=== PATIENT | female | born 1970 | race Caucasian/White ===

== ENCOUNTER 2024-04-11 19:35 | Observation (INO) | payer MEDICARE, OTHER ==
--- NOTE | 2024-04-11 19:42 | ED ---
Overdose HPI - General Stated Complaint: Overdose Time Seen by Provider: 04/11/24 19:41 Source: RN notes reviewed, old records reviewed Mode of arrival: EMS Limitations: altered mental status - History of Present Illness Initial Comments: This is a 53-year-old female of unknown overdose patient is a poor historian and unable to give history MD Complaint: intentional overdose, accidental overdose -: hour(s) Intent: unwilling to say Treatments Prior to Arrival: none - Related Data Home Medications Medication Instructions Recorded Confirmed Folic Acid 1 mg PO DAILY 04/11/24 04/14/24 Losartan Potassium 100 mg PO DAILY 04/11/24 04/14/24 Omeprazole 40 mg PO DAILY 04/11/24 04/14/24 estradioL [Estrace] 1 mg PO DAILY 04/11/24 04/14/24 metHOTREXate sodium [Methotrexate] 20 mg PO Q7D 04/11/24 04/14/24 Ergocalciferol [Vitamin D2 (1250 1,250 mcg PO Q7D 04/12/24 04/14/24 Mcg = [id number] Iu)] Previous Rx's Medication Instructions Recorded DULoxetine HCL [Cymbalta] 30 mg PO DAILY cap 04/14/24 QUEtiapine [SEROquel] 12.5 mg PO BID tab 04/14/24 Allergies Allergy/AdvReac Type Severity Reaction Status Date / Time Sulfa (Sulfonamide Allergy Rash/Hives Verified 04/15/24 18:15 Antibiotics) Review of Systems ROS Statement: Those systems with pertinent positive or pertinent negative responses have been documented in the HPI. ROS Other: All systems not noted in ROS Statement are negative. General Exam Limitations: altered mental status, physical limitation General appearance: alert, in no apparent distress Head exam: Present: atraumatic, normocephalic, normal inspection Eye exam: Present: normal appearance, PERRL, EOMI. Absent: scleral icterus, conjunctival injection, periorbital swelling ENT exam: Present: normal exam, mucous membranes moist Neck exam: Present: normal inspection. Absent: tenderness, meningismus, lymphadenopathy Respiratory exam: Present: normal lung sounds bilaterally. Absent: respiratory distress, wheezes, rales, rhonchi, stridor Cardiovascular Exam: Present: regular rate, normal rhythm, normal heart sounds. Absent: systolic murmur, diastolic murmur, rubs, gallop, clicks GI/Abdominal exam: Present: soft, normal bowel sounds. Absent: distended, tenderness, guarding, rebound, rigid Extremities exam: Present: normal inspection, full ROM, normal capillary refill. Absent: tenderness, pedal edema, joint swelling, calf tenderness Back exam: Present: normal inspection Neurological exam: Present: alert, oriented X3, CN II-XII intact Psychiatric exam: Present: normal affect, normal mood Skin exam: Present: warm, dry, intact, normal color. Absent: rash Course Vital Signs 04/11/24 04/11/24 04/11/24 19:36 20:00 20:45 Temperature Pulse Rate 123 H 113 H 113 H Respiratory 24 24 20 Rate Blood Pressure 146/105 158/113 159/110 O2 Sat by Pulse 98 97 98 Oximetry 04/11/24 04/11/24 04/11/24 21:45 21:58 22:30 Temperature 97.3 F L Pulse Rate 99 116 H Respiratory 20 Rate Blood Pressure 159/110 163/107 O2 Sat by Pulse 99 98 Oximetry 04/12/24 01:44 Temperature Pulse Rate 86 Respiratory 18 Rate Blood Pressure 156/95 O2 Sat by Pulse 97 Oximetry - Reevaluation(s) Reevaluation #1: 04/11/24 21:10 Medical records reviewed Reevaluation #2: 04/11/24 21:52 Patient symptoms unchanged Reevaluation #3: 04/11/24 21:52 Patient informed of results questions answered Reevaluation #4: Was pt. sent in by a medical professional or institution (, PA, EQUIPMENT OPERAT[employer]R, urgent care, hospital, or [place] [facility]...) When possible be specific @ -no Did you speak to anyone other than the patient for history (EMS, parent, family, police, friend...)? What history was obtained from this source @ -no Did you review nursing and triage notes (agree or disagree)? Why? @ -agree Are old charts reviewed (outside hosp., previous admission, EMS record, old EKG, old radiological studies, urgent care reports/EKG's, [place] [facility] records)? Report findings @ -yes Differential Diagnosis (chest pain, altered mental status, abdominal pain women, abdominal pain men, vaginal bleeding, weakness, fever, dyspnea, syncope, headache, dizziness, GI bleed, back pain, seizure, CVA, palpatations, mental health, musculoskeletal)? @ -prior EKG interpreted by me (3pts min.). @ -yes X-rays interpreted by me (1pt min.). @ -no CT interpreted by me (1pt min.). @ -no U/S interpreted by me (1pt. min.). @ -no What testing was considered but not performed or refused? (CT, X-rays, U/S, labs)? Why? @ -none What meds were considered but not given or refused? Why? @ -none Did you discuss the management of the patient with other professionals (professionals i.e. DrVickie, PA, EQUIPMENT OPERAT[employer]R, lab, RT, psych nurse, socially responsible investment adviser, wallpaper scraper, teacher, commanding officer motorized squad, caser shoe parts)? Give summary @ -no Was smoking cessation discussed for >3mins.? @ -no Was critical care preformed (if so, how long)? @ -no Were there social determinants of health that impacted care today? How? (Homelessness, low income, unemployed, alcoholism, drug addiction, transportation, low edu. Level, literacy, decrease access to med. care, detention, rehab)? @ -none Was there de-escalation of care discussed even if they declined (Discuss DNR or withdrawal of care, Hospice)? DNR status @ -no What co-morbidities impacted this encounter? (DM, HTN, Smoking, COPD, CAD, Cancer, CVA, ARF, Chemo, Hep., AIDS, mental health diagnosis, sleep apnea, morbid obesity)? @ -none Was patient admitted / discharged? Hospital course, mention meds given and route, prescriptions, significant lab abnormalities, going to OR and other per tinent info. @ - 53 female to the ER for evaluation of altered mental status suspected overdose will admit for acute intoxication secondary to accidental versus intentional overdose Admitted Undiagnosed new problem with uncertain prognosis? @ -no Drug Therapy requiring intensive monitoring for toxicity (Heparin, Nitro, Insulin, Cardizem)? @ -no Were any procedures done? @ -no Diagnosis/symptom? @ -Overdose accidental Acute, or Chronic, or Acute on Chronic? @ -Acute Uncomplicated (without systemic symptoms) or Complicated (systemic symptoms)? @ -Complicated Side effects of treatment? @ -no Exacerbation, Progression, or Severe Exacerbation? @ -exacerbation Poses a threat to life or bodily function? How? (Chest pain, [place], [place], pneumonia, PE, COPD, DKA, ARF, appy, cholecystitis, CVA, Diverticulitis, Homicidal, Suicidal, threat to staff... and all critical care pts) @ -yes suspected overdose Reevaluation #5: Differential Altered Mental Status: Hypoglycemia, DKA, hypercapnia, ETOH, overdose, CO poisoning, trauma, myxedema coma, HTN encephalopathy, infection, encephalitis, psychosis, intercranial hemorrhage, hepatic encephalopathy, meningitis, CVA, this is not meant to be an all-inclusive list - Consultations Consultation #1: Spoke with TOÑITO mcleod to admit this patient Medical Decision Making - Medical Decision Making 53 female to the ER for evaluation of altered mental status suspected overdose will admit for acute intoxication secondary to accidental versus intentional overdose - Lab Data Result diagrams: 04/13/24 05:19 04/14/24 10:10 Lab Results 04/11/24 04/11/24 04/11/24 Range/Units 19:49 19:49 20:22 WBC 7.8 (3.8-10.6) k/uL RBC 4.89 (3.80-5.40) m/uL Hgb 14.0 (11.4-16.0) gm/dL Hct 41.8 (34.0-46.0) % MCV 85.5 (80.0-100.0) fL MCH 28.6 (25.0-35.0) pg MCHC 33.4 (31.0-37.0) g/dL RDW 14.1 (11.5-15.5) % Plt Count 304 (150-450) k/uL MPV 7.8 Neutrophils % 66 % Lymphocytes % 21 % Monocytes % 9 % Eosinophils % 0 % Basophils % 1 % Neutrophils # 5.1 (1.3-7.7) k/uL Lymphocytes # 1.6 (1.0-4.8) k/uL Monocytes # 0.7 (0-1.0) k/uL Eosinophils # 0.0 (0-0.7) k/uL Basophils # 0.1 (0-0.2) k/uL PT 10.4 (10.0-12.5) sec INR 0.9 (<1.2) Sodium (137-145) mmol/L Potassium (3.5-5.1) mmol/L Chloride (98-107) mmol/L Carbon Dioxide (22-30) mmol/L Anion Gap mmol/L BUN (7-17) mg/dL Creatinine (0.52-1.04) mg/dL Est GFR (CKD-EPI)AfAm (>60 ml/min/1.73 sqM) Est GFR (CKD-EPI)NonAf (>60 ml/min/1.73 sqM) Glucose (74-99) mg/dL Calcium (8.4-10.2) mg/dL Total Bilirubin (0.2-1.3) mg/dL AST (14-36) U/L ALT (4-34) U/L Alkaline Phosphatase (38-126) U/L Total Protein (6.3-8.2) g/dL Albumin (3.5-5.0) g/dL Lipase (23-300) U/L Urine HCG, Qual Not Detected (Not Detectd) Salicylates mg/dL Urine Opiates Screen (NotDetected) Ur Oxycodone Screen (NotDetected) Urine Methadone Screen (NotDetected) Acetaminophen ug/mL Ur Barbiturates Screen (NotDetected) U Tricyclic Antidepress (NotDetected) Ur Phencyclidine Scrn (NotDetected) Ur Amphetamines Screen (NotDetected) U Methamphetamines Scrn (NotDetected) U Benzodiazepines Scrn (NotDetected) Urine Cocaine Screen (NotDetected) U Marijuana (THC) Screen (NotDetected) Serum Alcohol mg/dL 04/11/24 04/11/24 Range/Units 20:22 20:34 WBC (3.8-10.6) k/uL RBC (3.80-5.40) m/uL Hgb (11.4-16.0) gm/dL Hct (34.0-46.0) % MCV (80.0-100.0) fL MCH (25.0-35.0) pg MCHC (31.0-37.0) g/dL RDW (11.5-15.5) % Plt Count (150-450) k/uL MPV Neutrophils % % Lymphocytes % % Monocytes % % Eosinophils % % Basophils % % Neutrophils # (1.3-7.7) k/uL Lymphocytes # (1.0-4.8) k/uL Monocytes # (0-1.0) k/uL Eosinophils # (0-0.7) k/uL Basophils # (0-0.2) k/uL PT (10.0-12.5) sec INR (<1.2) Sodium 143 (137-145) mmol/L Potassium 3.7 (3.5-5.1) mmol/L Chloride 112 H (98-107) mmol/L Carbon Dioxide 20 L (22-30) mmol/L Anion Gap 11 mmol/L BUN 15 (7-17) mg/dL Creatinine 1.29 H (0.52-1.04) mg/dL Est GFR (CKD-EPI)AfAm 55 (>60 ml/min/1.73 sqM) Est GFR (CKD-EPI)NonAf 47 (>60 ml/min/1.73 sqM) Glucose 69 L (74-99) mg/dL Calcium 9.4 (8.4-10.2) mg/dL Total Bilirubin 0.4 (0.2-1.3) mg/dL AST 21 (14-36) U/L ALT 12 (4-34) U/L Alkaline Phosphatase 112 (38-126) U/L Total Protein 6.9 (6.3-8.2) g/dL Albumin 3.6 (3.5-5.0) g/dL Lipase 240 (23-300) U/L Urine HCG, Qual (Not Detectd) Salicylates <1.0 mg/dL Urine Opiates Screen Not Detected (NotDetected) Ur Oxycodone Screen Not Detected (NotDetected) Urine Methadone Screen Not Detected (NotDetected) Acetaminophen <10.0 ug/mL Ur Barbiturates Screen Not Detected (NotDetected) U Tricyclic Antidepress Not Detected (NotDetected) Ur Phencyclidine Scrn Not Detected (NotDetected) Ur Amphetamines Screen Not Detected (NotDetected) U Methamphetamines Scrn Not Detected (NotDetected) U Benzodiazepines Scrn Not Detected (NotDetected) Urine Cocaine Screen Not Detected (NotDetected) U Marijuana (THC) Screen Detected H (NotDetected) Serum Alcohol <10 mg/dL - EKG Data -: EKG Interpreted by Me (EKG is sinus tachycardia 123 MO 132 QRS 87 QTc 410) - Radiology Data Radiology results: report reviewed (CT brain is negatie for acute disease), image reviewed Disposition Clinical Impression: Accidental drug overdose, Drug overdose Disposition: ADMITTED IP TO THIS HOSP Condition: Fair Is patient prescribed a controlled substance at d/c from ED?: No Time of Disposition: 22:00
[2024-04-11 20:29] LABS: Basophils # (A) 0.1 k/uL (0-0.2); Basophils % (A) 1 %; Eosinophils % (A) 0 %; HCT 41.8 % (34.0-46.0); Lymphocytes # (A) 1.6 k/uL (1.0-4.8); Lymphocytes % (A) 21 %; MCH 28.6 pg (25.0-35.0); MCHC 33.4 g/dL (31.0-37.0); MCV 85.5 fL (80.0-100.0); Mean Platelet Volume 7.8; Monocytes # (A) 0.7 k/uL (0-1.0); Monocytes % (A) 9 %; Neutrophils # (A) 5.1 k/uL (1.3-7.7); Neutrophils % (A) 66 %; Platelet Count 304 k/uL (150-450); RBC 4.89 m/uL (3.80-5.40); RDW 14.1 % (11.5-15.5); WBC 7.8 k/uL (3.8-10.6)
[2024-04-11] MEDS: SODIUM CHLORIDE 0.9% 1,000 ML IV STA ×2 (20:29→22:34)
[2024-04-11] MEDS: SODIUM CHLORIDE 0.9% 500 ML 500 ML IV STA (20:47)
[2024-04-11 21:00] LABS: INR 0.9 (<1.2); Prothrombin Time 10.4 sec (10.0-12.5)
[2024-04-11 21:44] LABS: ALT 12 U/L (4-34); AST 21 U/L (14-36); Acetaminophen <10.0 ug/mL; African American GFR (CKD) 55 (>60 ml/min/1.73 sqM); Albumin 3.6 g/dL (3.5-5.0); Alcohol <10 mg/dL; Alkaline Phosphatase 112 U/L (38-126); Anion Gap 11 mmol/L; Blood Urea Nitrogen 15 mg/dL (7-17); Calcium 9.4 mg/dL (8.4-10.2); Carbon Dioxide 20 mmol/L (22-30); Chloride 112 mmol/L (98-107); Glucose 69 mg/dL (74-99); Lipase 240 U/L (23-300); Non-African American GFR(CKD) 47 (>60 ml/min/1.73 sqM); Potassium 3.7 mmol/L (3.5-5.1); Salicylate <1.0 mg/dL; Sodium 143 mmol/L (137-145); Total Bilirubin 0.4 mg/dL (0.2-1.3); Total Protein 6.9 g/dL (6.3-8.2)
[2024-04-11] MEDS ORDERED: LORazepam 2 MG/ML INJ IV PRN (21:50)
[2024-04-11] MEDS ORDERED: NALOXONE 0.4 MG/ML 1 ML VIAL IV PRN (21:51)
[2024-04-11] MEDS ORDERED: ONDANSETRON 4 MG/2 ML VIAL IVP PRN (21:51)
[2024-04-11 22:07] LABS: Amphetamine Screen,Urine Not Detected (NotDetected); Barbiturate Screen,Urine Not Detected (NotDetected); Benzodiazepines Screen,Urine Not Detected (NotDetected); Cocaine Screen,Urine Not Detected (NotDetected); Methadone Screen, Urine Not Detected (NotDetected); Opiate Screen,Urine Not Detected (NotDetected); Oxycodone Screen, Urine Not Detected (NotDetected); Phencyclidine Screen,Urine Not Detected (NotDetected); Tricyclic Antidepressant,Urine Not Detected (NotDetected); Urn Cannabinoid Scrn Detected (NotDetected)
[2024-04-11] MEDS: SODIUM CHLORIDE 0.9% 1,000 ML IV SCH (22:34)
[2024-04-11] MEDS: LORazepam 2 MG/ML INJ IV STA (22:36)
[2024-04-12 05:09] LABS: Basophils # (A) 0.1 k/uL (0-0.2); Basophils % (A) 1 %; Eosinophils % (A) 1 %; HGB 12.4 gm/dL (11.4-16.0); Lymphocytes # (A) 1.4 k/uL (1.0-4.8); Lymphocytes % (A) 24 %; MCH 27.8 pg (25.0-35.0); MCHC 31.8 g/dL (31.0-37.0); MCV 87.4 fL (80.0-100.0); Mean Platelet Volume 7.9; Monocytes # (A) 0.4 k/uL (0-1.0); Monocytes % (A) 7 %; Neutrophils # (A) 3.8 k/uL (1.3-7.7); Neutrophils % (A) 63 %; Platelet Count 276 k/uL (150-450); RBC 4.46 m/uL (3.80-5.40); RDW 14.7 % (11.5-15.5); WBC 5.9 k/uL (3.8-10.6)
[2024-04-12 06:04] LABS: ALT 9 U/L (4-34); AST 20 U/L (14-36); African American GFR (CKD) 43 (>60 ml/min/1.73 sqM); Albumin 3.3 g/dL (3.5-5.0); Alkaline Phosphatase 87 U/L (38-126); Anion Gap 11 mmol/L; Blood Urea Nitrogen 17 mg/dL (7-17); Calcium 8.8 mg/dL (8.4-10.2); Carbon Dioxide 18 mmol/L (22-30); Chloride 115 mmol/L (98-107); Glucose 74 mg/dL (74-99); Magnesium 2.2 mg/dL (1.6-2.3); Non-African American GFR(CKD) 37 (>60 ml/min/1.73 sqM); Potassium 3.2 mmol/L (3.5-5.1); Sodium 144 mmol/L (137-145); Total Bilirubin 0.3 mg/dL (0.2-1.3); Total Protein 6.5 g/dL (6.3-8.2)
[2024-04-12] MEDS: PANTOPRAZOLE 40 MG/10 ML VIAL IV SCH (08:10)
[2024-04-12 09:03] LABS: Phosphorus 3.5 mg/dL (2.5-4.5)
[2024-04-12] MEDS: POTASSIUM CHLORIDE ER 20 MEQ TAB.ER PO SCH (10:07)
[2024-04-12] MEDS: LOSARTAN 50 MG TAB PO SCH (11:28)
[2024-04-12] MEDS: LACTATED RINGERS 1,000 ML IV SCH (11:28)
[2024-04-12 15:36] VITALS: BMI 25.7
[2024-04-12] MEDS ORDERED: DULoxetine HCL 30 MG CAPSULE.DR PO SCH (21:00)
[2024-04-12] MEDS: QUEtiapine 25 MG TAB PO SCH (21:16)
--- NOTE | 2024-04-12 22:41 | P.HPIM ---
History of Present Illness H&P Date: 04/12/24 Chief Complaint: Overdose Patient is a 53-year-old female with a past medical history of rheumatoid arthritis, prior history of smoking, anxiety/depression/bipolar disorder was brought to the hospital due to accidental overdose. Patient states that she took extra sleeping pills as she is not feeling well and upset with his brother. Patient did not want to commit suicide otherwise. Patient is not sure which medication she took. Denied any complaints of chest pain or shortness of breath. No nausea vomiting abdominal pain or diarrhea. No cough or sputum production. Denied any recent illnesses. EKG on admission showed sinus tachycardia with heart rate 123 Patient has been afebrile. On room air on admission Laboratory data showed sodium 143 potassium 3.7 chloride 112 bicarb is 20 BUN 15 and creatinine 1.29 and blood sugar of 69 liver AST not elevated CK level 50 and lipase 240 urine beta-hCG not detected UDS is positive for marijuana. Serum marker level less than 10. Review of Systems Complete review of systems could not be obtained from the patient except as per HPI ROS unobtainable: due to mental status Past Medical History Past Medical History: Pneumonia, Rheumatoid Arthritis (RA) History of Any Multi-Drug Resistant Organisms: Unobtainable Past Surgical History: Joint Replacement Additional Past Surgical History / Comment(s): R knee replacement Past Anesthesia/Blood Transfusion Reactions: Unable to Obtain Past Psychological History: Unable to Obtain Smoking Status: Former smoker Past Alcohol Use History: Occasional Past Drug Use History: None Reported Medications and Allergies Home Medications Medication Instructions Recorded Confirmed Type DULoxetine HCL [Cymbalta] 60 mg PO DAILY 04/11/24 04/12/24 History Folic Acid 1 mg PO DAILY 04/11/24 04/12/24 History Losartan Potassium 100 mg PO DAILY 04/11/24 04/12/24 History Omeprazole 40 mg PO DAILY 04/11/24 04/12/24 History Pregabalin [Lyrica] 75 mg PO TID 04/11/24 04/12/24 History estradioL [Estrace] 1 mg PO DAILY 04/11/24 04/12/24 History metHOTREXate sodium [Methotrexate] 20 mg PO Q7D 04/11/24 04/12/24 History Ergocalciferol [Vitamin D2 (1250 1,250 mcg PO Q7D 04/12/24 04/12/24 History Mcg = 48312 Iu)] Allergies Allergy/AdvReac Type Severity Reaction Status Date / Time Sulfa (Sulfonamide Allergy Unknown Verified 04/11/24 19:45 Antibiotics) Physical Exam Vitals: Vital Signs Temp Pulse Pulse Pulse Resp BP BP 04/12/24 07:39 98.6 F 90 16 154/94 04/12/24 05:40 97.6 F 96 18 167/97 04/12/24 05:08 97.8 F 92 18 155/95 04/12/24 01:44 86 18 156/95 04/11/24 22:30 116 H 20 163/107 04/11/24 21:58 97.3 F L 04/11/24 21:45 99 159/110 04/11/24 20:45 113 H 20 159/110 04/11/24 20:00 113 H 24 158/113 04/11/24 19:36 123 H 24 146/105 Pulse Ox 04/12/24 07:39 98 04/12/24 05:40 99 04/12/24 05:08 96 04/12/24 01:44 97 04/11/24 22:30 98 04/11/24 21:58 04/11/24 21:45 99 04/11/24 20:45 98 04/11/24 20:00 97 04/11/24 19:36 98 Intake and Output 04/11/24 04/12/24 04/12/24 22:59 06:59 14:59 Other: Weight 68.039 kg 68.039 kg PHYSICAL EXAMINATION: Patient is lying in the bed, no acute distress, awake alert and oriented but confused and anxious... HEENT: Normocephalic. Neck is supple. Pupils reactive. Nostrils clear. Oral cavity is moist. Neck reveals no JVD, carotid bruits, or thyromegaly. CHEST EXAMINATION: Trachea is central. Symmetrical expansion. Lung houser clear to auscultation and percussion. CARDIAC: Normal S1, S2 with no gallops. No murmurs ABDOMEN: Soft. Bowel sounds normal. No organomegaly. No abdominal bruits. Extremities: reveal no edema. No clubbing or cyanosis Neurologically awake, alert, oriented x 2-3 with well-coordinated movements. No focal deficits noted Skin: No rash or skin lesions. Psychiatric: Coperative. Nonsuicidal Musculoskeletal: No joint swelling or deformity. Normal range of motion. Results CBC & Chem 7: 04/12/24 04:17 04/12/24 04:17 Labs: Abnormal Lab Results - Last 24 Hours (Table) 04/11/24 04/11/24 04/12/24 Range/Units 20:22 20:34 04:17 Potassium 3.2 L (3.5-5.1) mmol/L Chloride 112 H 115 H (98-107) mmol/L Carbon Dioxide 20 L 18 L (22-30) mmol/L Creatinine 1.29 H 1.58 H (0.52-1.04) mg/dL Glucose 69 L (74-99) mg/dL Albumin 3.3 L (3.5-5.0) g/dL U Marijuana (THC) Screen Detected H (NotDetected) Thrombosis Risk Factor Assmnt - DVT/VTE Prophylaxis DVT/VTE Prophylaxis: Pharmacologic Prophylaxis ordered - Choose All That Apply Any of the Below Risk Factors Present?: Yes Each Factor Represents 1 point: Age 41-60 years, Obesity (BMI >25) Other Risk Factors: No Other congenital or acquired thrombophilia - If yes, enter type in comment: No Thrombosis Risk Factor Assessment Total Risk Factor Score: 2 Thrombosis Risk Factor Assessment Level: Low Risk Assessment and Plan Assessment: Acute intestinal drug overdose Hypokalemia Acute kidney injury likely vasomotor nephropathy Anxiety/depression Rheumatoid arthritis on methotrexate at home Prior history of smoking Marijuana use disorder GI and DVT prophylaxis with Protonix and heparin subcu Plan: Patient will be continued on IV hydration with Ringer's lactate. Replace electrolytes. Continue with constant observer at bedside. Psychiatry was consulted. Patient will be started back on Cymbalta and Seroquel which she takes at home. Continue to follow closely. Time with Patient: Greater than 30
[2024-04-13] MEDS: HEPARIN SODIUM,PORCINE 5,000 UNIT/ML 1 ML VIAL SQ SCH (00:07)
[2024-04-13] MEDS: FOLIC ACID 1 MG TAB PO SCH (08:01)
[2024-04-13] MEDS: DULoxetine HCL 30 MG CAPSULE.DR PO SCH (08:01)
[2024-04-13 09:07] LABS: Basophils # (A) 0.05 X 10*3/uL (0.00-0.10); Basophils % (A) 0.8 %; Eosinophils # (A) 0.11 X 10*3/uL (0.04-0.35); Eosinophils % (A) 1.9 %; HCT 34.9 % (37.2-46.3); HGB 11.4 g/dL (12.0-15.0); Lymphocytes # (A) 1.64 X 10*3/uL (0.90-5.00); Lymphocytes % (A) 27.7 %; MCH 28.2 pg (27.0-32.0); MCHC 32.7 g/dL (32.0-37.0); MCV 86.4 FL (80.0-97.0); Mean Platelet Volume 9.9 FL (9.5-12.2); Monocytes # (A) 0.54 X 10*3/uL (0.20-1.00); Monocytes % (A) 9.1 %; NRBC Per 100 WBC 0 X 10*3/uL (0.00-0.01); Neutrophils # (A) 3.49 X 10*3/uL (1.80-7.70); Platelet Count 292 X 10*3/uL (140-440); RBC 4.04 X 10*6/uL (4.10-5.20); RDW 14.5 % (11.5-14.5); WBC 5.92 X 10*3/uL (4.50-10.00)
[2024-04-13 09:16] LABS: BUN/Creat Ratio 8.75 Ratio (12.00-20.00); Blood Urea Nitrogen 10.5 mg/dL (9.0-27.0); Calcium 8.5 mg/dL (8.7-10.3); Carbon Dioxide 15.5 mmol/L (21.6-31.8); Chloride 115 mmol/L (96-109); Glucose 73 mg/dL (70-110); Potassium 3.8 mmol/L (3.5-5.5); Sodium 143 mmol/L (135-145)
[2024-04-13 13:01] VITALS: RESP 16
--- NOTE | 2024-04-14 00:35 | P.CN ---
Psychiatric Consult - . Consult date: 04/12/24 Consult:: IDENTIFYING DATA: This patient is a 53 year old partnered female REASON FOR REFERRAL: Psychiatry was consulted for "overdose". HISTORY OF PRESENT ILLNESS: Per medical H&P, "Patient is a 53-year-old female with a past medical history of rheumatoid arthritis, prior history of smoking, anxiety/depression/bipolar disorder was brought to the hospital due to accidental overdose. Patient states that she took extra sleeping pills as she is not feeling well and upset with his brother. Patient did not want to commit suicide otherwise. Patient is not sure which medication she took. Denied any complaints of chest pain or shortness of breath. No nausea vomiting abdominal pain or diarrhea. No cough or sputum production. Denied any recent illnesses. EKG on admission showed sinus tachycardia with heart rate 123 Patient has been afebrile. On room air on admission Laboratory data showed sodium 143 potassium 3.7 chloride 112 bicarb is 20 BUN 15 and creatinine 1.29 and blood sugar of 69 liver AST not elevated CK level 50 and lipase 240 urine beta-hCG not detected UDS is positive for marijuana. Serum marker level less than 10." Prior to evaluating patient, I spoke with patient's unit nurse who spoke with patient's fiance. Nurse reports patient was a missing person for approximately 24 hours after having left her home within apparently loaded gun that she was holding to her head and a bag of unspecified medications. She got into the car and left her home and jesus manuel was not sure where she went and so police were called. It is believed when police found her in her they searched her car, however it is not clear if they found a gun or medications. On my assessment, patient is found sitting up in bed with food tray in front of her and sitter at bedside to maintain safety (who leaves the room for privacy). Patient appears to be a poor historian and appears very confused throughout the assessment often giving nonsensical answers. She is alert and oriented to person and can identify that she is at a hospital, ever she claims she is at [facility] and believes the year is 2024. She claims she is here because she had the flu and hasn't been going out of the house. She had been throwing up for more than a week. Her thoughts are disorganized and she begins to talk about her boyfriend yelling at her and "going to [employer] and being out of stocks and fence panels, tea posts and paint." When asked if she feels confused she replies "not at all". She appears unaware of how confused she has or how inappropriate her responses are. she is prescribed Cymbalta and Lyrica at home and believe she took these medications at the hospital this morning however these have been ordered for her here. She denies overdosing to me, ever per medical doctors know she had admitted taking extra sleeping pills but claims she did not want to commit suicide. apparently police found her parked at possibly a rest stop. She denies that she had held a gun to her head. She admits she owns a gun and she had the chronic the gun in her car but claims it was in the trunk. She denies depressed mood. She begins describing the gun as having "taken the clip out of it" and "had one in the chamber", then derails into nonsensical thought content about "for tiling, before everything sets up her cutting trying to scrape them off." She claims "everybody is always so concerned about a gun!" and does not appear to appreciate the severity of her mental health decline and the severity of her suicidal gesture. At this time patient denies any suicidal or homicidal ideations, intent or plan. Patient denies any auditory, visual hallucinations and denies any paranoia or delusions. Patients admits to using cannabis, about 3 joints per day. He denies alcohol use or other illicit drug use. She is a former smoker and is proud that she has quit. PAST PSYCHIATRIC HISTORY: Patient is an unreliable historian but reports she has depression and anxiety that is being treated with Cymbalta. She reports previous psychiatric hospitalizations at [facility]. She denies any current psychiatric outpatient follow-up. She reports her medications are prescribed by her primary care doctor Dr. Owens. She denies any past history of suicide attempts. PAST MEDICAL HISTORY: Past Medical History: Pneumonia, Rheumatoid Arthritis (RA) History of Any Multi-Drug Resistant Organisms: Unobtainable Past Surgical History: Joint Replacement Additional Past Surgical History / Comment(s): R knee replacement Past Anesthesia/Blood Transfusion Reactions: Unable to Obtain Past Psychological History: Unable to Obtain Smoking Status: Former smoker Past Alcohol Use History: Occasional Past Drug Use History: None Reported ALLERGIES: as per EMR. CHEMICAL DEPENDENCY HISTORY: as per HPI. FAMILY PSYCHIATRIC/SUBSTANCE USE HISTORY: reports father is an alcoholic and brother has a history of heroin. SOCIAL HISTORY: She is an unreliable historian. she has a fianc that she was living with however she claims he does not want her back in the house. She has a sister named Shanell. MENTAL STATUS EXAM: General Appearance: Patient appears to be stated age, fair hygiene and grooming, wearing hospital gown, with fair eye contact, tattoos. Behavior: Patient is sitting up in bed without any agitated behavior. Speech: Patient's speech is fluent and non-pressured. Mood/Affect: Patient reports their mood is "good", affect is congruent Suicidality/Homicidality: Patient denies having any suicidal or homicidal ideation intent or plan. Perceptions: Patient denies any visual hallucinations [and denies any auditory hallucinations] Though content/process: There is no evidence of any delusional thought content and thought process is linear and goal-directed. Memory and concentration: Alert and oriented to person only. recent and remote memory is impaired. Judgment and insight: poor IMPRESSIONS: Delirium (s/p overdose on unknown medications, elevated creatinine) Unspecified psychotic disorder r/o cannabis induced psychotic disorder Unspecified depressive disorder Cannabis use disorder, severe PLAN: -Patient DOES meet criteria for inpatient psychiatric admission, however due to patient's confusion and renal creatinine trending upwards, she is not considered medically stable for transfer to the psychiatry unit at this time. -Patient DOES NOT have decision making capacity at this time and is unable to reason through and communicate/appreciate the risks, benefits and alternatives to treatment. -Delirium precautions recommended with patient including - avoiding use of narcotics and DYE RANGE TENDER sedatives, limit anticholinergic medications when possible, frequent re-orientation, minimize use of restraints, open window shades during the day and close them at night -Would recommend the following medication changes/additions: Discontinue PRN Ativan since this may increase the risk of falls and confusion, especially since creatinine is trending upwards. Ativan may be used for myoclonus in the context of serotonin syndrome, however at this time she does not appear to have myoclonus. Start Seroquel 12.5 mg BID for psychosis, with plan to increase as needed/tolerated. Restart home Cymbalta as 30 mg daily starting Sunday AM (instead of 60 mg daily) for depression. Monitor for any signs/symptoms of serotonin syndrome (tachycardia, high blood pressure, agitation, restlessness, insomnia, worsening confusion, dilated pupils, twitching muscles/poor muscle coordination, muscle ridgidity, sweating, headache, diarrhea, shivering, goose bumps, fever, tremor, etc) and discontinue Cymbalta. -Continue 1:1 sitter for safety. -Cannot leave AMA at this time. Patient will need a petition and certification if attempting to leave AMA. -Social work assistance would be appreciated in contacting the police department that brought patient to the ER to see if medications were found in the car (were the medication bottles full or empty), and if gun was found in the car (where is gun located now?). -When medically stable, patient is eligible for transfer to a psych bed when available. -Communicated plan to patient's nurse. -Will continue to follow along. -Please contact with any questions.
--- NOTE | 2024-04-14 10:22 | P.PN ---
Subjective Progress Note Date: 04/13/24 Patient is a 53-year-old female with a past medical history of rheumatoid arthritis, prior history of smoking, anxiety/depression/bipolar disorder was brought to the hospital due to accidental overdose. Patient states that she took extra sleeping pills as she is not feeling well and upset with his brother. Patient did not want to commit suicide otherwise. Patient is not sure which medication she took. Denied any complaints of chest pain or shortness of breath. No nausea vomiting abdominal pain or diarrhea. No cough or sputum production. Denied any recent illnesses. EKG on admission showed sinus tachycardia with heart rate 123 Patient has been afebrile. On room air on admission Laboratory data showed sodium 143 potassium 3.7 chloride 112 bicarb is 20 BUN 15 and creatinine 1.29 and blood sugar of 69 liver AST not elevated CK level 50 and lipase 240 urine beta-hCG not detected UDS is positive for marijuana. Serum marker level less than 10. 04/13/2024 Patient is currently lying in the bed. Awake alert and oriented. Mentation is improving. No complaints of chest pain or shortness of breath. No headache or dizziness or lightheadedness. Laboratory data showed WBC 5.9 hemoglobin 9.4 and platelets 292 sodium 143 potassium 3.8 chloride 115 bicarb is 15.5 BUN 10.5 and creatinine 1.2 and calcium 8.5. TSH within normal limits. Patient is being continued on Cymbalta and Seroquel. Constant observer at bedside. Continued on Ringer's lactate at 75 cc/h. Current medications reviewed. Objective - Vital Signs Vital signs: Vital Signs Temp 98.2 F 04/13/24 19:47 Pulse 66 04/13/24 19:47 Resp 16 04/13/24 19:47 BP 156/73 04/13/24 19:47 Pulse Ox 96 04/13/24 19:47 FiO2 Intake & Output 04/13/24 04/13/24 04/14/24 06:59 18:59 06:59 Intake Total Balance Intake: Intake, IV Titration Amount Lactated Ringers 1,000 ml @ 75 mls/hr IV .[id number] SY Rx#:[id number] Sodium Chloride 0.9% 1, 000 ml @ 130 mls/hr IV . Q7H42M SY Rx#:[id number] Oral Other: # Voids - Exam PHYSICAL EXAMINATION: Patient is lying in the bed, no acute distress, awake alert and oriented but confused and anxious... HEENT: Normocephalic. Neck is supple. Pupils reactive. Nostrils clear. Oral cavity is moist. Neck reveals no JVD, carotid bruits, or thyromegaly. CHEST EXAMINATION: Trachea is central. Symmetrical expansion. Lung houser clear to auscultation and percussion. CARDIAC: Normal S1, S2 with no gallops. No murmurs ABDOMEN: Soft. Bowel sounds normal. No organomegaly. No abdominal bruits. Extremities: reveal no edema. No clubbing or cyanosis Neurologically awake, alert, oriented x 2-3 with well-coordinated movements. No focal deficits noted Skin: No rash or skin lesions. Psychiatric: Coperative. Nonsuicidal Musculoskeletal: No joint swelling or deformity. Normal range of motion. - Labs CBC & Chem 7: 04/13/24 05:19 04/13/24 05:19 Labs: Abnormal Lab Results - Last 24 Hours (Table) 04/13/24 04/13/24 Range/Units 05:19 05:19 RBC 4.04 L (4.10-5.20) X 10*6/uL Hgb 11.4 L (12.0-15.0) g/dL Hct 34.9 L (37.2-46.3) % Immature Gran # 0.09 H (0.00-0.04) X 10*3/uL Chloride 115 H (96-109) mmol/L Carbon Dioxide 15.5 L (21.6-31.8) mmol/L Anion Gap 12.50 H (4.00-12.00) mmol/L Est GFR (CKD-EPI) 54 L (>=60) BUN/Creatinine Ratio 8.75 L (12.00-20.00) Ratio Calcium 8.5 L (8.7-10.3) mg/dL Assessment and Plan Assessment: Acute intentional drug overdose Acute delirium Hypokalemia Acute kidney injury likely vasomotor nephropathy Anxiety/depression Rheumatoid arthritis on methotrexate at home Prior history of smoking Marijuana use disorder GI and DVT prophylaxis with Protonix and heparin subcu Plan: Patient will be continued on IV hydration with Ringer's lactate. Replace electrolytes. Continue to monitor renal function. Continue with constant observer at bedside. Psychiatry is on board. Patient was started back on Cymbalta and Seroquel which she takes at home. Continue to follow closely.
[2024-04-14 10:36] LABS: African American GFR (CKD) 78 (>60 ml/min/1.73 sqM); Anion Gap 8 mmol/L; Blood Urea Nitrogen 14 mg/dL (7-17); Calcium 8.9 mg/dL (8.4-10.2); Carbon Dioxide 17 mmol/L (22-30); Chloride 117 mmol/L (98-107); Glucose 94 mg/dL (74-99); Non-African American GFR(CKD) 68 (>60 ml/min/1.73 sqM); Potassium 3.7 mmol/L (3.5-5.1); Sodium 142 mmol/L (137-145)
--- NOTE | 2024-04-14 12:18 | P.DS ---
Providers Date of admission: 04/11/24 21:52 Expected date of discharge: 04/14/24 Attending physician: Mabel Pineda Consults: 04/11/24 21:51 Consult Physician Routine Consulting Provider: Merrill Rivera Consult Reason/Comments: overdose Do you want consulting provider notified?: Yes Primary care physician: Theodora Owens [facility] Course: Final diagnosis Acute intentional drug overdose Acute delirium Hypokalemia Acute kidney injury likely vasomotor nephropathy Anxiety/depression Rheumatoid arthritis on methotrexate at home Prior history of smoking Marijuana use disorder GI and DVT prophylaxis Full code Discharge disposition Patient is being transferred in a stable condition with guarded prognosis to 3 psychiatric unit for further psychiatric evaluation. Patient will follow-up with Dr. Owens in the outpatient setting upon discharge. Patient is to continue with current medications and outpatient follow-up with psychiatry as scheduled. Total time taken is greater than 35 minutes. Hospital course This is a 53-year-old female who was recently admitted with acute intentional overdose after becoming upset with family with increased anxiety and depression with acute delirium being closely monitored. Patient evaluated by psychiatry reporting she does meet inpatient criteria once medically stable. Repeat kidney functions show improved creatinine and patient is medically stable for transfer to 3 for further psychiatric evaluation. Please refer to other consultation note for further HPI. Currently no reports of chest pain, shortness of breath, or palpitations. Patient is afebrile. No reports of nausea or vomiting and patient is tolerating diet. Patient will be transferred to 3 once a bed is available today. Overall guarded prognosis Physical exam: Gen: This is a 53-year-old female who is awake, alert and oriented x 3, well- developed, well-nourished HEENT: Head is atraumatic, normocephalic. Pupils equal, round. Sclerae is anicteric. NECK: Supple. No JVD. No lymphadenopathy. No thyromegaly. LUNGS: Diminished breath sounds bilaterally otherwise clear to auscultation. No wheezes or rhonchi. No intercostal retractions. HEART: S1, S2 are muffled ABDOMEN: Soft. Bowel sounds are present. No masses. No tenderness. EXTREMITIES: No pedal edema. No calf tenderness. NEUROLOGICAL: Patient is awake, alert and oriented x3. Cranial nerves 2 through 12 are grossly intact. Please refer to medication reconciliation sheet for a list of medications. The impression and plan of care has been dictated by Nurse Nando Grant as directed. Dr. Javier MD I have performed a history and examination and MDM of this patient, discussed the same with the dictator, and agree with the dictator's assessment and plan as written ,documented as a scribe. Based on total visit time, I have performed more than 50% of the visit. Patient Condition at Discharge: Fair Plan - Discharge Summary Discharge Rx Participant: No New Discharge Prescriptions: New DULoxetine HCL [Cymbalta] 30 mg PO DAILY cap QUEtiapine [SEROquel] 12.5 mg PO BID tab Continue estradioL [Estrace] 1 mg PO DAILY Losartan Potassium 100 mg PO DAILY Omeprazole 40 mg PO DAILY Folic Acid 1 mg PO DAILY metHOTREXate sodium [Methotrexate] 20 mg PO Q7D Ergocalciferol [Vitamin D2 (1250 Mcg = 19777 Iu)] 1,250 mcg PO Q7D Discontinued Pregabalin [Lyrica] 75 mg PO TID DULoxetine HCL [Cymbalta] 60 mg PO DAILY Discharge Medication List Folic Acid 1 mg PO DAILY 04/11/24 [History] Losartan Potassium 100 mg PO DAILY 04/11/24 [History] Omeprazole 40 mg PO DAILY 04/11/24 [History] estradioL [Estrace] 1 mg PO DAILY 04/11/24 [History] metHOTREXate sodium [Methotrexate] 20 mg PO Q7D 04/11/24 [History] Ergocalciferol [Vitamin D2 (1250 Mcg = 35506 Iu)] 1,250 mcg PO Q7D 04/12/24 [History] DULoxetine HCL [Cymbalta] 30 mg PO DAILY cap 04/14/24 [Rx] QUEtiapine [SEROquel] 12.5 mg PO BID tab 04/14/24 [Rx] Follow up Appointment(s)/Referral(s): None,Stated [REFERRING] - 1-2 days Patient Instructions/Handouts: Adult Overdose (ED) Activity/Diet/Wound Care/Special Instructions: Patient is medically stable for psych unit for further psychiatric evaluation Follow-up with primary care provider on discharge Activity as tolerated Discharge Disposition: TRANSFER TO PSYCH HOSP/UNIT
[2024-04-14 14:22] VITALS: BP 164/93; PULSE 81; TEMP 98.2
== END 2024-04-14 17:38 ==
LOC: EC 19:35 → 6NMEDSUR 21:52 → 5NMEDONC 04-12 04:20
PROVIDERS: ADMIT Hospitalist; ATTEND Hospitalist
DX: T50.902A Poisoning by unspecified drugs, medicaments and biological substances, intentional self-harm, initial encounter (principal); R41.0 Disorientation, unspecified; E87.6 Hypokalemia; N17.9 Acute kidney failure, unspecified; F31.9 Bipolar disorder, unspecified; F41.9 Anxiety disorder, unspecified; M06.9 Rheumatoid arthritis, unspecified; F12.20 Cannabis dependence, uncomplicated; Z11.52 Encounter for screening for COVID-19; Z79.631 Long term (current) use of antimetabolite agent; Z87.891 Personal history of nicotine dependence; Z79.890 Hormone replacement therapy; Z79.899 Other long term (current) drug therapy; Z88.2 Allergy status to sulfonamides
CPT/HCPCS: 96376; 96372; 96375; 96374; 99285; 36415; 93005; 80053 ×2; 80048 ×2; 84443; 82550 ×2; 83690; 83735; 84100; 85025 ×3; 85610; 81025; 80306; 80143; 87635; 80179; G0378 ×5; G0480; J2060; J1644; J2470 ×2; 80320

== ENCOUNTER 2024-04-14 17:09 | Inpatient (IN) | payer MEDICARE ==
[2024-04-14] MEDS ORDERED: MAGNESIUM HYDROXIDE 2,400 MG/30 ML CUP PO PRN (17:19)
[2024-04-14] MEDS ORDERED: ACETAMINOPHEN TAB 325 MG TAB PO PRN (17:19)
[2024-04-14] MEDS ORDERED: LORazepam 2 MG/ML INJ IM PRN (17:19)
[2024-04-14] MEDS ORDERED: HALOPERIDOL LACTATE 5 MG/ML 1 ML VIAL IM PRN (17:19)
[2024-04-14] MEDS: LORazepam 1 MG TAB PO PRN (18:19)
[2024-04-14] MEDS: QUEtiapine 25 MG TAB PO SCH (21:58)
[2024-04-15 09:27] LABS: Basophils # (A) 0.1 k/uL (0-0.2); Basophils % (A) 1 %; Eosinophils # (A) 0.1 k/uL (0-0.7); Eosinophils % (A) 1 %; HCT 41.6 % (34.0-46.0); HGB 13.7 gm/dL (11.4-16.0); Lymphocytes # (A) 1.1 k/uL (1.0-4.8); Lymphocytes % (A) 15 %; MCH 28.3 pg (25.0-35.0); MCHC 32.9 g/dL (31.0-37.0); MCV 86.2 fL (80.0-100.0); Mean Platelet Volume 7.6; Monocytes # (A) 0.2 k/uL (0-1.0); Monocytes % (A) 3 %; Neutrophils # (A) 5.6 k/uL (1.3-7.7); Neutrophils % (A) 80 %; Platelet Count 422 k/uL (150-450); RBC 4.83 m/uL (3.80-5.40); RDW 14.6 % (11.5-15.5); WBC 7.1 k/uL (3.8-10.6)
[2024-04-15 09:40] LABS: ALT 9 U/L (4-34); AST 21 U/L (14-36); African American GFR (CKD) 80 (>60 ml/min/1.73 sqM); Albumin 3.7 g/dL (3.5-5.0); Alkaline Phosphatase 103 U/L (38-126); Anion Gap 9 mmol/L; Bilirubin, Delta 0.3 mg/dL (0.0-0.2); Bilirubin,Unconjugated 0.5 mg/dL (0.0-1.1); Blood Urea Nitrogen 13 mg/dL (7-17); Calcium 9.2 mg/dL (8.4-10.2); Carbon Dioxide 17 mmol/L (22-30); Chloride 115 mmol/L (98-107); Glucose 137 mg/dL (74-99); Non-African American GFR(CKD) 70 (>60 ml/min/1.73 sqM); Potassium 3.8 mmol/L (3.5-5.1); Sodium 141 mmol/L (137-145); Total Bilirubin 0.8 mg/dL (0.2-1.3)
[2024-04-15] MEDS: LOSARTAN 50 MG TAB PO SCH (09:43)
[2024-04-15] MEDS: FOLIC ACID 1 MG TAB PO SCH (09:43)
[2024-04-15] MEDS: NICOTINE 14MG/24HR PATCH TRANSDERM SCH (09:43)
[2024-04-15] MEDS: haloperidoL 5 MG TAB PO PRN (09:45)
[2024-04-15 10:33] VITALS: RESP 16
--- NOTE | 2024-04-15 15:05 | P.MDCNMH ---
History of Present Illness H&P Date: 04/15/24 This is a 53-year-old female who was admitted on the medical unit after an intentional overdose while getting upset from a family member. Patient vital signs stable and repeat lab values reveal an improved kidney injury and patient was deemed medically stable for transfer to 3 W. psychiatric unit for further evaluation. Patient has been evaluated by psychiatry while on the medical unit reporting she was appropriate for inpatient psychiatric admission. Patient had a medical certificate completed as patient is medically stable to go to 3 W. Patient became extremely upset reporting she did not need to go to a psychiatric center and denied any suicidal ideation or thoughts of wanting to harm herself or others. Patient did have a sitter at the bedside and was petitioned to remain hospitalized and unable to leave AMA. Repeat labs are ordered for today and pending at this time. Medications reviewed and resumed as appropriate. REVIEW OF SYSTEMS: CONSTITUTIONAL: No fever, no malaise, no fatigue. HEENT: No recent visual problems or hearing problems. Denied any sore throat. CARDIOVASCULAR: No chest pain, orthopnea, PND, no palpitations, no syncope. PULMONARY: No shortness of breath, no cough, no hemoptysis. GASTROINTESTINAL: No diarrhea, no nausea, no vomiting, no abdominal pain. NEUROLOGICAL: No headaches, no weakness, no numbness. HEMATOLOGICAL: Denies any bleeding or petechiae. GENITOURINARY: Denies any burning micturition, frequency, or urgency. MUSCULOSKELETAL/RHEUMATOLOGICAL: Denies any joint pain, swelling, or any muscle pain. ENDOCRINE: Denies any polyuria or polydipsia. The rest of the 14-point review of systems is negative. PHYSICAL EXAMINATION: GENERAL: The patient is alert and oriented x3, not in any acute distress. Well developed, well nourished. HEENT: Pupils are round and equally reacting to light. EOMI. No scleral icterus. No conjunctival pallor. Normocephalic, atraumatic. No pharyngeal erythema. No thyromegaly. CARDIOVASCULAR: S1 and S2 present. No murmurs, rubs, or gallops. PULMONARY: Chest is clear to auscultation, no wheezing or crackles. ABDOMEN: Soft, nontender, nondistended, normoactive bowel sounds. No palpable organomegaly. MUSCULOSKELETAL: No joint swelling or deformity. EXTREMITIES: No cyanosis, clubbing, or pedal edema. NEUROLOGICAL: Gross neurological examination did not reveal any focal deficits. SKIN: No rashes. Assessment: Acute intentional drug overdose Acute delirium, improved Acute kidney injury likely vasomotor nephropathy improved after gentle hydration while on the medical unit History of anxiety/depression Rheumatoid arthritis history on methotrexate at home Prior history of smoking Marijuana use disorder Full code Plan: Patient was admitted involuntarily to 3 psychiatric services for further psychiatric evaluation as patient was evaluated by psychiatry while on the medical unit for an acute intentional drug overdose. Patient reports she was not attempting suicide and was upset and does not want to go to the psych unit. Patient was evaluated by psychiatrist recommending inpatient psych admission for further psychiatric evaluation and medication adjustments. Patient has been encouraged to attend group therapy sessions and compliance with medications Patient encouraged to follow-up with primary care provider in the outpatient setting once discharged The impression and plan of care has been dictated by Tracey Barlow Nurse Practitioner as directed. Dr. Javier MD I have performed a history and examination and MDM of this patient, discussed the same with the dictator, and agree with the dictator's assessment and plan as written ,documented as a scribe. Based on total visit time, I have performed more than 50% of the visit. Past Medical History Past Medical History: Fibromyalgia, Hypertension, Pneumonia, Rheumatoid Arthritis (RA) Additional Past Medical History / Comment(s): Essential tremor History of Any Multi-Drug Resistant Organisms: Unobtainable Past Surgical History: Joint Replacement Additional Past Surgical History / Comment(s): R knee replacement Past Anesthesia/Blood Transfusion Reactions: Unable to Obtain Past Psychological History: Unable to Obtain Smoking Status: Former smoker Past Alcohol Use History: Occasional Past Drug Use History: None Reported Medications and Allergies Home Medications Medication Instructions Recorded Confirmed Type Folic Acid 1 mg PO DAILY 04/11/24 04/14/24 History Losartan Potassium 100 mg PO DAILY 04/11/24 04/14/24 History Omeprazole 40 mg PO DAILY 04/11/24 04/14/24 History estradioL [Estrace] 1 mg PO DAILY 04/11/24 04/14/24 History metHOTREXate sodium [Methotrexate] 20 mg PO Q7D 04/11/24 04/14/24 History Ergocalciferol [Vitamin D2 (1250 1,250 mcg PO Q7D 04/12/24 04/14/24 History Mcg = 40674 Iu)] DULoxetine HCL [Cymbalta] 30 mg PO DAILY cap 04/14/24 04/14/24 Rx QUEtiapine [SEROquel] 12.5 mg PO BID tab 04/14/24 04/14/24 Rx Allergies Allergy/AdvReac Type Severity Reaction Status Date / Time Sulfa (Sulfonamide Allergy Unknown Verified 04/11/24 19:45 Antibiotics) Physical Exam Vitals: Vital Signs Temp Pulse BP Pulse Ox 04/14/24 18:45 152/90 04/14/24 18:00 173/102 04/14/24 17:45 97.6 F 112 H 193/142 98 Intake and Output 04/14/24 04/15/24 04/15/24 22:59 06:59 14:59 Other: Weight 70.125 kg Cranial Nerve Examination - Cranial Nerves Cranial Nerve I- Olfactory: Intact Cranial Nerve II- Optic: Intact Cranial Nerve III- Oculomotor: Intact Cranial Nerve IV- Trochlear: Intact Cranial Nerve V- Trigeminal: Intact Cranial Nerve - Abducens: Intact Cranial Nerve VII- Facial: Intact Cranial Nerve VIII- Auditory: Intact Cranial Nerve IX- Glossopharyngeal: Intact Cranial Nerve X- Vagus: Intact Cranial Nerve XI- Accessory: Intact Cranial Nerve XII- Hypoglossal: Intact Results CBC & Chem 7: 04/15/24 08:35 04/15/24 08:35
[2024-04-15 15:51] LABS: Chol/HDL Ratio 5.45 Ratio; LDL Cholesterol,Calculated 135.7 mg/dL (0.0-131.0)
[2024-04-15] MEDS: DULoxetine HCL 30 MG CAPSULE.DR PO ONE (16:04)
--- NOTE | 2024-04-15 16:30 | P.HP ---
Psychiatric H&P - . H&P Date: 04/15/24 History & Physical: Allergies Allergy/AdvReac Type Severity Reaction Status Date / Time Sulfa (Sulfonamide Allergy Unknown Verified 04/11/24 19:45 Antibiotics) Vital Signs Temp 97.6 F 04/14/24 17:45 Pulse 105 H 04/15/24 08:00 Resp 16 04/15/24 08:00 BP 155/93 04/15/24 08:00 Pulse Ox 98 04/15/24 08:00 FiO2 Intake & Output 04/14/24 04/15/24 04/15/24 18:59 06:59 18:59 Weight 70.125 kg Laboratory Last Values WBC 7.1 k/uL (3.8-10.6) 04/15/24 08:35 RBC 4.83 m/uL (3.80-5.40) 04/15/24 08:35 Hgb 13.7 gm/dL (11.4-16.0) 04/15/24 08:35 Hct 41.6 % (34.0-46.0) 04/15/24 08:35 MCV 86.2 fL (80.0-100.0) 04/15/24 08:35 MCH 28.3 pg (25.0-35.0) 04/15/24 08:35 MCHC 32.9 g/dL (31.0-37.0) 04/15/24 08:35 RDW 14.6 % (11.5-15.5) 04/15/24 08:35 Plt Count 422 k/uL (150-450) 04/15/24 08:35 MPV 7.6 04/15/24 08:35 Neutrophils % 80 % 04/15/24 08:35 Lymphocytes % 15 % 04/15/24 08:35 Monocytes % 3 % 04/15/24 08:35 Eosinophils % 1 % 04/15/24 08:35 Basophils % 1 % 04/15/24 08:35 Neutrophils # 5.6 k/uL (1.3-7.7) 04/15/24 08:35 Lymphocytes # 1.1 k/uL (1.0-4.8) 04/15/24 08:35 Monocytes # 0.2 k/uL (0-1.0) 04/15/24 08:35 Eosinophils # 0.1 k/uL (0-0.7) 04/15/24 08:35 Basophils # 0.1 k/uL (0-0.2) 04/15/24 08:35 Sodium 141 mmol/L (137-145) 04/15/24 08:35 Potassium 3.8 mmol/L (3.5-5.1) 04/15/24 08:35 Chloride 115 mmol/L (98-107) H 04/15/24 08:35 Carbon Dioxide 17 mmol/L (22-30) L 04/15/24 08:35 Anion Gap 9 mmol/L 04/15/24 08:35 BUN 13 mg/dL (7-17) 04/15/24 08:35 Creatinine 0.94 mg/dL (0.52-1.04) 04/15/24 08:35 Est GFR (CKD-EPI)AfAm 80 (>60 ml/min/1.73 sqM) 04/15/24 08:35 Est GFR (CKD-EPI)NonAf 70 (>60 ml/min/1.73 sqM) 04/15/24 08:35 Glucose 137 mg/dL (74-99) H 04/15/24 08:35 Calcium 9.2 mg/dL (8.4-10.2) 04/15/24 08:35 Total Bilirubin 0.8 mg/dL (0.2-1.3) 04/15/24 08:35 Conjugated Bilirubin 0.0 mg/dL (0.0-0.3) 04/15/24 08:35 Unconjugated Bilirubin 0.5 mg/dL (0.0-1.1) 04/15/24 08:35 Delta Bilirubin 0.3 mg/dL (0.0-0.2) H 04/15/24 08:35 AST 21 U/L (14-36) 04/15/24 08:35 ALT 9 U/L (4-34) 04/15/24 08:35 Alkaline Phosphatase 103 U/L (38-126) 04/15/24 08:35 Total Protein 7.0 g/dL (6.3-8.2) 04/15/24 08:35 Albumin 3.7 g/dL (3.5-5.0) 04/15/24 08:35 TSH 2.480 mIU/L (0.465-4.680) 04/15/24 08:35 04/15/24 12:59 IDENTIFYING DATA: Patient is a 53-year-old female, living at home with boyfriend on disability CHIEF COMPLAINT: Suicide attempt via OD HPI: Patient presented to the hospital with a chief complaint of overdose. Psychiatry was consulted and patient was seen by Dr. Devries who states "Prior to evaluating patient, I spoke with patient's unit nurse who spoke with patient's fiance. Nurse reports patient was a missing person for approximately 24 hours after having left her home within apparently loaded gun that she was holding to her head and a bag of unspecified medications. She got into the car and left her home and jesus manuel was not sure where she went and so police were called. It is believed when police found her in her they searched her car, however it is not clear if they found a gun or medications. On my assessment, patient is found sitting up in bed with food tray in front of her and sitter at bedside to maintain safety (who leaves the room for privacy). Patient appears to be a poor historian and appears very confused throughout the assessment often giving nonsensical answers. She is alert and oriented to person and can identify that she is at a hospital, ever she claims she is at [facility] and believes the year is 2024. She claims she is here because she had the flu and hasn't been going out of the house. She had been throwing up for more than a week. Her thoughts are disorganized and she begins to talk about her boyfriend yelling at her and "going to [employer] and being out of stocks and fence panels, tea posts and paint." When asked if she feels confused she replies "not at all". She appears unaware of how confused she has or how inappropriate her responses are. she is prescribed Cymbalta and Lyrica at home and believe she took these medications at the hospital this morning however these have been ordered for her here. She denies overdosing to me, ever per medical doctors know she had admitted taking extra sleeping pills but claims she did not want to commit suicide. apparently police found her parked at possibly a rest stop. She denies that she had held a gun to her head. She admits she owns a gun and she had the chronic the gun in her car but claims it was in the trunk. She denies depressed mood. She begins describing the gun as having "taken the clip out of it" and "had one in the chamber", then derails into nonsensical thought content about "for tiling, before everything sets up her cutting trying to scrape them off." She claims "everybody is always so concerned about a gun!" and does not appear to appreciate the severity of her mental health decline and the severity of her suicidal gesture. At this time patient denies any suicidal or homicidal ideations, intent or plan. Patient denies any auditory, visual hallucinations and denies any paranoia or delusions. Patients admits to using cannabis, about 3 joints per day. He denies alcohol use or other illicit drug use. She is a former smoker and is proud that she has quit." Patient seen and evaluated on the unit and was agreeable to speak to advertising writer in the office. She states fighting with her boyfriend and her sister prompted her to take several sleeping pills however she is adamant she was not attempting suicide however just wanted to sleep. Patient very tearful during entire interview and was fixated on being discharged back home due to several concerns including the food at the hospital, her lack of pain management, and her inability to do her usual routine. She states being in constant pain and usually takes lyrica and cymabalta for this. She states she has since contacted her boyfriend and that things are better between them. Patient denies any suicidal or homicidal ideations intent or plan. At this time patient denies any auditory or visual hallucinations. Patient denies any flight of ideas racing thoughts and increased in goal directed behavior. Patient admits to using cannabis and nicotine. PAST PSYCHIATRIC HISTORY: Patient has a history of fibromyalgia. Patient currently takes cymbalta 60 mg for fibromyalgia prescribed by her food beverage supervisor. She previously has tried lexapro and paxil. Patient reports 1 prior hospitalization in 2012. She does not have a psychiatrist however sees a therapist weekly. Patient denies any history of suicide attempts in the past. PMH: as per ER note ALLERGIES: as per EMR SUBSTANCE USE HISTORY: patient reports using 2 THC gummies per day and vaping daily. She denies any alcohol use or other illicit drugs. FAMILY PSYCHIATRIC/SUBSTANCE USE HISTORY: Denies SOCIAL HISTORY: Patient currently lives with boyfriend in [place]. She has no children and is . She is on disability. She completed some college. MENTAL STATUS EXAM: General Appearance: Patient appears to be stated age is alert, directable, and attempts to cooperate. Patient appears to have fair hygiene and grooming. Behavior: Patient is seated without any agitated behavior. She is very tearful during entire interview. Speech: Patient's speech is fluent and nonpressured. Mood/Affect: Patient reports their mood is depressed, affect is congruent and constricted. Suicidality/Homicidality: Patient denies having any homicidal ideation intent or plan. Denies any suicidal ideations intent or plan Perceptions: Patient denies any visual hallucinations and denies any auditory hallucinations Though content/process: There is no evidence of any delusional thought content and thought process is linear and logical. Memory and concentration: AOX3, grossly intact for the purposes of this session. Can spell "WORLD" backwards Judgment and insight: Poor STRENGTHS/WEAKNESSES: strength is that patient is resilient. Weakness is that patient has poor judgment and is impulsive INTELLECT: Average IMPRESSIONS: Suicide attempt via OD Depression, unspecified Cannabis use disorder Nicotine dependence PLAN: -Patient is admitted under involuntary status to [facility] for stabilization of psychiatric symptoms and safety. Patient has not signed adult voluntary form and medication consent and is placed in patient's chart. A second certification was completed and along with petition will be filed for court. -Medications : Start Cymbalta 30 mg daily for depression and continue Seroquel 12.5 mg twice daily for mood stabilization -Ativan and Haldol PRN for agitation/aggression -Patient was counselled on substance abuse and desired to cut back on use -Patient was informed of the risks, benefits and side effects of the medication and patient verbally consented to taking the medications. Patient signed med consent form and was placed in chart. -Internal Medicine consult to perform medical evaluation and physical. -NRT -nicotine patch -SW on board for discharge planning. Encourage patient to participate in groups to work on coping skills. Will await deferral and court date. 04/15/24 16:29
[2024-04-15] MEDS: IBUPROFEN 600 MG TAB PO PRN (16:35)
[2024-04-15 19:16] LABS: Appearance,Urine Cloudy (Clear); Bacteria,Urine Occasional /hpf; Bilirubin,Urine Negative (Negative); Blood,Urine Negative (Negative); Color,Urine Yellow; Glucose,Urine (UA) Negative (Negative); Hyaline Casts,Urine 21 /lpf (0-2); Ketones,Urine Negative (Negative); Leukocyte Esterase,Urine Trace (Negative); Mucus,Urine Many /hpf; Nitrite,Urine Negative (Negative); PH, Urine 5.5 (5.0-8.0); Protein,Urine Trace (Negative); RBC,Urine 2 /hpf (0-5); Specific Gravity,Urine 1.013 (1.001-1.035); Squamous Epithelial Cell,Urine 12 /hpf (0-4); WBC,Urine 13 /hpf (0-5)
[2024-04-16] MEDS: DULoxetine HCL 30 MG CAPSULE.DR PO SCH (08:20)
--- NOTE | 2024-04-16 12:12 | P.PN ---
Progress Note - Text Progress Note Date: 04/16/24 Interval History: Patient was seen in her room and was directable and agreeable to speak with wr iter in the office. Patient notably less tearful and more bright in affect today than yesterday. She herself reports feeling better today, reporting low pain levels and overall better mood. She did report high anxiety this morning related to an intrusive peer however reports the as needed Ativan was helpful with this. She states sleeping well. Patient continues to minimize her overdose on sleeping pills prior to arrival however she was able to identify healthier coping skills in the future if triggered by arguments from relatives, stating she will walk away and focus on the present moment instead of reacting. She states her boyfriend will be visiting her today. The involuntary process was discussed today and patient was in agreement with signing a deferral as she has been adherent with medications and agreement with treatment. At this time patient denies any suicidal or homicidal ideations, intent or plan. Patient denies any auditory, visual hallucinations and denies any paranoia or delusions. Patient denies any side effects from the medications and has been compliant with meds. Mental Status Exam: General Appearance: Patient appears to be stated age is alert, directable, and cooperative. Behavior: Patient is calmly seated without any agitated behavior. Patient notably considerably less tearful than previous encounter Speech: Patient's speech is fluent and nonpressured. Mood/Affect: Mood is improving mildly, affect is congruent and more bright. Suicidality/Homicidality: Patient denies having any suicidal or homicidal ideation intent or plan. Perceptions: Patient denies any visual hallucinations and denies any auditory hallucinations Though content/process: There is no evidence of any delusional thought content and thought process is linear and goal-directed. Memory and concentration: AOX3, grossly intact for the purposes of this session Judgment and insight: Improving mildly Assessment Suicide attempt via OD Depression, unspecified Cannabis use disorder Nicotine dependence Plan: -Patient continues to meet criteria for inpatient psychiatric admission for symptom stabilization and safety. Patient has not signed adult voluntary form and medication consent and was placed in patient's chart. -Medications: Increase Cymbalta to 60 mg daily tomorrow for depression/anxiety and discontinue Seroquel 12.5 mg twice daily -When necessary Ativan and Haldol for agitation/aggression. -Labs: Reviewed -NRT -nicotine patch -SW on board for discharge planning. Encouraged the patient to participate in milieu. Currently awaiting deferral with real estate associate attorney and court date. Anticipate discharge home on Sunday, with boyfriend who confirmed no firearms in the home
[2024-04-16 16:43] VITALS: BMI 26.5
[2024-04-17] MEDS: DULoxetine HCL 60 MG CAPSULE.DR PO SCH (08:14)
[2024-04-17] MEDS: MAG HYDROX/AL HYDROX/SIMETH 355 ML BOTTLE PO PRN (08:53)
--- NOTE | 2024-04-17 12:01 | P.PN ---
Progress Note - Text Progress Note Date: 04/17/24 Interval History: Patient was seen wandering the hallways and was directable and agreeable to mariana mccracken with freelance copywriter in the office. Patient notably appeared bright in affect however was intermittently tearful during encounter. She mentions feeling better today and that she has normal clothes instead of hospital clothes. She states seeing her boyfriend yesterday during visitation and that they were in agreement with starting couples counseling. She mentions her boyfriend is a great support system and that this is the longest they have been without each other. She denied any irritability however did report increase in anxiety related to an intrusive peer. She states sleep is okay and patient has been attending groups. [facility] however does not have a psychiatrist outpatient. Reporting an increase in pain from fibromyalgia and knee. At this time patient denies any suicidal or homicidal ideations, intent or plan. Patient denies any auditory, visual hallucinations and denies any paranoia or delusions. Patient denies any side effects from the m edications and has been compliant with meds. Mental Status Exam: General Appearance: Patient appears to be stated age is alert, directable, and cooperative. Behavior: Patient is calmly seated without any agitated behavior. Patient intermittently tearful throughout encounter Speech: Patient's speech is fluent and nonpressured. Mood/Affect: Mood is improving mildly, affect is congruent and reactive. Suicidality/Homicidality: Patient denies having any suicidal or homicidal ideation intent or plan. Perceptions: Patient denies any visual hallucinations and denies any auditory hallucinations Though content/process: There is no evidence of any delusional thought content and thought process is linear and goal-directed. Memory and concentration: AOX3, grossly intact for the purposes of this session Judgment and insight: Improving mildly Assessment Suicide attempt via OD depression, unspecified Cannabis use disorder Nicotine dependence Plan: -Patient continues to meet criteria for inpatient psychiatric admission for symptom stabilization and safety. Patient has not signed adult voluntary form and medication consent and was placed in patient's chart. -Medications: Continue Cymbalta 60 mg daily for depression/anxiety. Seroquel 12.5 mg twice daily discontinued yesterday -When necessary Ativan and Haldol for agitation/aggression. -Labs: Reviewed -NRT -nicotine patch -SW on board for discharge planning. Encouraged the patient to participate in milieu. Patient deferred yesterday. Anticipate discharge home tomorrow, with boyfriend
[2024-04-18 07:07] VITALS: BP 123/79; PULSE 83; TEMP 98.1
--- NOTE | 2024-04-18 13:50 | P.DS ---
Providers Date of admission: 04/14/24 18:21 Expected date of discharge: 04/18/24 Attending physician: Denise Reyes MD Consults: 04/15/24 05:58 Consult Physician Routine Consulting Provider: Mabel Pineda Consult Reason/Comments: medical H&P Do you want consulting provider notified?: Yes, Notify in am Primary care physician: Stated None - Discharge Diagnosis(es) (1) Suicide attempt Current Visit: Yes Status: Acute Priority: High (2) Depression, unspecified Current Visit: Yes Status: Acute Priority: High (3) Cannabis use disorder Current Visit: Yes Status: Acute Priority: Low (4) Nicotine dependence Current Visit: Yes Status: Acute Priority: Low Hospital Course: Admission HPI: Admission note was completed by advertising copywriter "Patient presented to the hospital with a chief complaint of overdose. Psychiatry was consulted and patient was seen by Dr. Devries who states "Prior to evaluating patient, I spoke with patient's unit nurse who spoke with patient's fiance. Nurse reports patient was a missing person for approximately 24 hours after having left her home within apparently loaded gun that she was holding to her head and a bag of unspecified medications. She got into the car and left her home and jesus manuel was not sure where she went and so police were called. It is believed when police found her in her they searched her car, however it is not clear if they found a gun or medications. On my assessment, patient is found sitting up in bed with food tray in front of her and sitter at bedside to maintain safety (who leaves the room for privacy). Patient appears to be a poor historian and appears very confused throughout the assessment often giving nonsensical answers. She is alert and oriented to person and can identify that she is at a hospital, ever she claims she is at [facility] and believes the year is 2024. She claims she is here because she had the flu and hasn't been going out of the house. She had been throwing up for more than a week. Her thoughts are disorganized and she begins to talk about her boyfriend yelling at her and "going to [employer] and being out of stocks and fence panels, tea posts and paint." When asked if she feels confused she replies "not at all". She appears unaware of how confused she has or how inappropriate her responses are. she is prescribed Cymbalta and Lyrica at home and believe she took these medications at the hospital this morning however these have been ordered for her here. She denies overdosing to me, ever per medical doctors know she had admitted taking extra sleeping pills but claims she did not want to commit suicide. apparently police found her parked at possibly a rest stop. She denies that she had held a gun to her head. She admits she owns a gun and she had the chronic the gun in her car but claims it was in the trunk. She denies depressed mood. She begins describing the gun as having "taken the clip out of it" and "had one in the chamber", then derails into nonsensical thought content about "for tiling, before everything sets up her cutting trying to scrape them off." She claims "everybody is always so concerned about a gun!" and does not appear to appreciate the severity of her mental health decline and the severity of her suicidal gesture. At this time patient denies any suicidal or homicidal ideations, intent or plan. Patient denies any auditory, visual hallucinations and denies any paranoia or delusions. Patients admits to using cannabis, about 3 joints per day. He denies alcohol use or other illicit drug use. She is a former smoker and is proud that she has quit." Patient seen and evaluated on the unit and was agreeable to speak to advertising copywriter in the office. She states fighting with her boyfriend and her sister prompted her to take several sleeping pills however she is adamant she was not attempting suicide however just wanted to sleep. Patient very tearful during entire interview and was fixated on being discharged back home due to several concerns including the food at the hospital, her lack of pain management, and her inability to do her usual routine. She states being in constant pain and usually takes lyrica and cymabalta for this. She states she has since contacted her boyfriend and that things are better between them. Patient denies any suicidal or homicidal ideations intent or plan. At this time patient denies any auditory or visual hallucinations. Patient denies any flight of ideas racing thoughts and increased in goal directed behavior. Patient admits to using cannabis and nicotine." Hospital course: Upon admission to the unit patient was admitted involuntarily on a petition and certificate and a second certificate was completed and faxed to the courts. Patient ended up signing a deferral with the account solutions analyst and agreeing to treatment.. Patient got along well with other patients on the unit and followed unit protocol. Patient notably extremely tearful on admission however this significantly improved towards the end of her stay, being more social and bright in affect. Patient was compliant with the medications and denied any side effects throughout hospital course. Patient was started on Cymbalta and this was increased to 60 mg daily for depression/anxiety. Patient spoke of her stressors and engaged in therapy both group and individual. Patient was also seen by medical team for history and physical exam. Throughout the course of the hospitalization patient gradually improved with regards to mood, anxiety, sleep and became more future oriented with improved insight and judgment. On the day of discharge patient denied any suicidal or homicidal ideations intent or plan denied any auditory or visual hallucinations. The patient denied any access to guns or weapons. Patient denied any paranoia and did not endorse any delusions. Patient does have a significant history of substance abuse and was counseled on abstaining from all substances including alcohol and marijuana. . Patient was also counseled on the medications and need for regular compliance and was encouraged to follow-up with their outpatient appointment for mental health and also for primary care. Prior to discharge a family meeting will be arranged by clinical social work aide to answer any questions and ensure safety upon discharge incuding making sure that guns/weapons are either removed from the home or locked away. Patient to be discharged with boyfriend with [facility] follow-up Mental status exam: General Appearance: Patient appears to be stated age is alert, pleasant, and cooperative. Patient is in no acute distress and has improved hygiene and grooming Behavior: Patient is calmly seated without any agitated behavior. Speech: Patient's speech is fluent and nonpressured. Mood/Affect: Patient reports their mood is "better", affect is congruent and euthymic, bright. Suicidality/Homicidality: Patient denies having any suicidal or homicidal ideation intent or plan. Perceptions: Patient denies any auditory or visual hallucinations. Though content/process: There is no evidence of any delusional thought content and thought process is linear and goal-directed. More future oriented Memory and concentration: AOX3, grossly intact for the purposes of this session. Can spell "WORLD" backwards correctly. Judgment and insight: Improved Impression: Suicide attempt via OD Depression, unspecified Cannabis use disorder Nicotine dependence Plan: -Continue with discharge today as patient has improved and stabilized psychiatrically and is not currently an imminent threat to themself and/or others. -Continue medications: Cymbalta 60 mg daily -Patient was counseled on the need for medication compliance and appropriate follow-up at mental health and also primary care for medical issues. Patient verbalized understanding and agreed. -Social work to help coordinate patients discharge today arrange for and conduct family meeting to ensure safety upon discharge and answer any questions/concerns. also to ensure safe home environment that guns/weapons are either removed from the home or locked away. Social work also to arrange for patients follow up appointments with [facility] for psychiatric care along with follow up with primary care provider. -Patient counseled on abstaining from recreational drugs and marijuana and alcohol. Was informed/educated on the adverse effects on their physical and m ental health. Patient verbally agreed and understood. -Patient was instructed to return to the hospital or seek immediate medical care if their psychiatric or medical symptoms do worsen or reoccur. Abnormal Labs 04/15/24 04/15/24 08:35 18:59 Chloride 115 H Carbon Dioxide 17 L Glucose 137 H Delta Bilirubin 0.3 H Triglycerides 179.00 H Cholesterol 210.00 H LDL Cholesterol, Calc 135.7 H HDL Cholesterol 38.50 L Urine Appearance Cloudy H Urine Protein Trace H Ur Leukocyte Esterase Trace H Urine WBC 13 H Ur Squamous Epith Cells 12 H Urine Bacteria Occasional H Hyaline Casts 21 H Urine Mucus Many H Vital Signs Temp 98.1 F 04/18/24 07:06 Pulse 83 04/18/24 07:06 Resp 16 04/15/24 08:00 BP 123/79 04/18/24 07:06 Pulse Ox 99 04/18/24 07:06 FiO2 Allergies Allergy/AdvReac Type Severity Reaction Status Date / Time Sulfa (Sulfonamide Allergy Rash/Hives Verified 04/15/24 18:15 Antibiotics) Patient Condition at Discharge: Stable Plan - Discharge Summary Discharge Rx Participant: No New Discharge Prescriptions: New DULoxetine HCL [Cymbalta] 60 mg PO DAILY 30 Days #30 cap Nicotine 14Mg/24Hr Patch [Habitrol] 1 patch TRANSDERM DAILY patch Continue estradioL [Estrace] 1 mg PO DAILY Losartan Potassium 100 mg PO DAILY Omeprazole 40 mg PO DAILY Folic Acid 1 mg PO DAILY metHOTREXate sodium [Methotrexate] 20 mg PO Q7D Ergocalciferol [Vitamin D2 (1250 Mcg = 78358 Iu)] 1,250 mcg PO Q7D Discontinued DULoxetine HCL [Cymbalta] 30 mg PO DAILY cap QUEtiapine [SEROquel] 12.5 mg PO BID tab Discharge Medication List Folic Acid 1 mg PO DAILY 04/11/24 [History] Losartan Potassium 100 mg PO DAILY 04/11/24 [History] Omeprazole 40 mg PO DAILY 04/11/24 [History] estradioL [Estrace] 1 mg PO DAILY 04/11/24 [History] metHOTREXate sodium [Methotrexate] 20 mg PO Q7D 04/11/24 [History] Ergocalciferol [Vitamin D2 (1250 Mcg = 54126 Iu)] 1,250 mcg PO Q7D 04/12/24 [History] DULoxetine HCL [Cymbalta] 60 mg PO DAILY 30 Days #30 cap 04/18/24 [Rx] Nicotine 14Mg/24Hr Patch [Habitrol] 1 patch TRANSDERM DAILY patch 04/18/24 [Rx] Follow up Appointment(s)/Referral(s): [facility] [REFERRING] - 1 Week [facility] [NON-STAFF] - 04/24/24 12:00 pm (Intake with Susan) Patient Instructions/Handouts: Depression (DC), Suicide Prevention (DC) Activity/Diet/Wound Care/Special Instructions: Avoid the use of street drugs and alcohol. Take all medications as prescribed. When you are in need of refills on your medications, please contact your medical provider and/or outpatient psychiatrist/provider to have this done. Please go to your scheduled outpatient appointment for aftercare treatment. If symptoms return or become worse, call the crisis line at and/or go to the nearest emergency room for evaluation. National Suicide Hotline 262 Discharge Disposition: HOME SELF-CARE
== END 2024-04-18 14:03 | disposition home or self-care (01) | DRG 881 ==
LOC: 3MHU 18:21
PROVIDERS: ADMIT Psychiatry & Neurology Psychiatry; ATTEND Psychiatry & Neurology Psychiatry
DX: F32.A Depression, unspecified (principal); F41.9 Anxiety disorder, unspecified; G25.0 Essential tremor; I10 Essential (primary) hypertension; M06.9 Rheumatoid arthritis, unspecified; F17.200 Nicotine dependence, unspecified, uncomplicated; F12.90 Cannabis use, unspecified, uncomplicated; M79.7 Fibromyalgia; T50.902A Poisoning by unspecified drugs, medicaments and biological substances, intentional self-harm, initial encounter; Z79.890 Hormone replacement therapy; Z79.899 Other long term (current) drug therapy; Z96.651 Presence of right artificial knee joint
CPT/HCPCS: 80053; 80061; 81001; 82248; 83036; 84443; 85025